=== PATIENT | male | born 1940 | race Caucasian/White ===

== ENCOUNTER 2017-10-10 01:28 | Emergency (ER) | payer MEDICARE ==
[~2017-10-10] VITALS: Ht 185.4 cm; Wt 79.4 kg
[~2017-10-10 01:28] MED LIST: ABAC300; ASPI325 PO; ATOR20 PO; ATOR40TA PO; Aspir 8181 MG PO; CEFP200 PO; CLOP75 PO; LEVSOD100 PO; LEVSOD150 PO; LEVSOD75 PO; METO25ER PO; Synthroid/Levo0.2 MG PO
[2017-10-10 02:39] LABS: Source, Urine Catheter
[2017-10-10 02:41] LABS: Bilirubin, Urine Neg (Neg); Blood, Urine 5+ (Neg); Glucose Qualitative, Urine Neg (Neg); Ketones, Urine Neg (Neg); Leukocyte Esterase, Urine 2+ (Neg); Nitrite, Urine Pos (Neg); Protein, Urine 2+ (Neg); Specific Gravity, Urine 1.015 (1.003-1.022); Urobilinogen, Urine NORM (Normal)
[2017-10-10] MEDS ORDERED: LEVFLO500 PO (02:50)
[2017-10-10 02:51] LABS: Appearance, Urine Cloudy (Clear); Color, Urine Yellow (P-Yellow)
[2017-10-10 03:14] LABS: Amorphous Light (0-Heavy); Bacteria Few /hpf; Mucus Light (0-Heavy); Red Blood Cells, Urine 25-50 /hpf (0-2); Squamous Epithelial Cells Not Seen /hpf (Few)
== END 2017-10-10 03:20 | disposition home or self-care (01) ==
LOC: ER 01:28
PROVIDERS: Emergency Medicine
DX: T83.091A Other mechanical complication of indwelling urethral catheter, initial encounter (principal); N39.0 Urinary tract infection, site not specified; E03.9 Hypothyroidism, unspecified; Z79.82 Long term (current) use of aspirin; Z79.899 Other long term (current) drug therapy; Z86.73 Personal history of transient ischemic attack (TIA), and cerebral infarction without residual deficits
CPT/HCPCS: 51702; 81001; 99283

== ENCOUNTER → 2021-03-18 | Outpatient (CLI) | payer MEDICARE ==
[~2021-03-18] MED LIST changes: +LEVFLO500 PO
== END | disposition home or self-care (01) ==
LOC: LAB 15:17 → LAB SHORT 15:17
DX: E03.9 Hypothyroidism, unspecified (principal)
CPT/HCPCS: 84443